=== PATIENT | male | born 1975 | race Caucasian/White ===

== ENCOUNTER → 2016-10-24 | Outpatient (CLI) | payer BC ==
[~2016-10-24] MED LIST: ASCA500 PO; CARI350T PO; DULO60CA44 PO; GABA300C19 PO; MORP60TA6 PO; MRLP17 PO; PANT40TA PO; RXC30 PO; TAPE50TA PO; VITAMIN C PO
== END | disposition home or self-care (01) ==
LOC: C.LABBC 09:48
PROVIDERS: ATTEND Anesthesiology
DX: R53.83 Other fatigue (principal); F11.90 Opioid use, unspecified, uncomplicated

== ENCOUNTER → 2016-10-31 | Outpatient (CLI) | payer BC, OTHER ==
[~2016-10-31] MED LIST changes: -CARI350T PO; -MORP60TA6 PO; -MRLP17 PO; -RXC30 PO
== END | disposition home or self-care (01) ==
LOC: C.CPL 12:05
PROVIDERS: ATTEND Student in an Organized Health Care Education/Training Program
DX: R94.31 Abnormal electrocardiogram [ECG] [EKG] (principal)

== ENCOUNTER → 2016-11-09 | Outpatient (CLI) | payer OTHER | LOC: C.LAB 00:51 | DX: Z02.83 Encounter for blood-alcohol and blood-drug test (principal) ==

== ENCOUNTER 2016-12-01 17:12 | Emergency (ER) | payer BC, OTHER ==
[~2016-12-01] VITALS: Ht 180.3 cm; Wt 113.0 kg
[~2016-12-01 17:12] MED LIST changes: -ASCA500 PO; -TAPE50TA PO
[2016-12-01 17:38] VITALS: Ht 180.3 cm; Wt 113.0 kg
[2016-12-01] MEDS ORDERED: MoRPHine SULFATE 4 MG/ML 1 ML CARP\\VIAL IV STA (19:25)
[2016-12-01] MEDS ORDERED: TRAMADOL HCL 50 MG TAB PO STA (19:25)
[2016-12-01] MEDS ORDERED: ACETAMINOPHEN 325 MG TAB PO STA (19:25)
[2016-12-01] MEDS ORDERED: SODIUM CHLORIDE 0.9% 1000ML 1,000 ML IV STA ×2 (19:25→20:39)
--- NOTE | 2016-12-01 19:27 | EMERGENCY ROOM VISIT NOTE ---
History Report prepared by Mernaibanneliese: Noreen Ramirez Under the Supervision of: Dr. Hussain Garrido M.D. First contact with patient: 19:10 Chief Complaint: CARDIAC ASSESSMENT Stated Complaint: CHEST PAIN, LEFT ARM PAIN, WEAKNESS SEVERE PAINS Nursing Triage Summary: Patient reports left sided chest pain and left arm pain that started all weekend. Reports the pain goes up the side of his neck and behind his left eye. Denies any cardiac history. 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 He reports the pain radiates into his left arm and up his neck. Yesterday, he experienced the pain but it eventually resolved. Today, the pain started and has not resolved yet. Positive headache, shortness of breath. Negative fevers, sore throat, congestion. The patient denies any personal cardiac history. He also denies any recent travel, surgeries or history of PE's or DVT's. The patient's father has a history of heart disease and underwent quadruple bypass surgery at the age of 46. 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 A total of ten systems were reviewed and were otherwise negative. Past Medical & Surgical Medical Problems: (1) Appendectomy (2) CHRONIC PAIN SYNDROME (3) COLOSTOMY STATUS (4) Diverticulitis of colon (5) DIVERTICULOSIS COLON (W/O MENT OF HEMORRHAGE) (6) ESOPHAGEAL REFLUX (7) History of lumbar laminectomy for decompression of spinal cord (8) LUMB/LUMBOSAC DISC DEGEN (9) perforated diverticulitis Family History Heart disease Kidney stones Social History Smoking Status: Current Some Day Smoker Alcohol Use: none Drug Use: none Marital Status: Housing Status: lives with family Occupation Status: employed Current/Historical Medications Scheduled Ascorbic Acid (Vitamin C), 100 MG PO DAILY Duloxetine Hcl (Cymbalta), 1 CAP PO DAILY Gabapentin (Neurontin), 600 MG PO TID Pantoprazole (Protonix), MG PO DAILY Allergies Coded Allergies: Methadone (Verified Adverse Reaction, Severe, SWEATS, SHAKES, NAUSEA, TREMMORS, 03/12/14) Physical Exam Vital Signs Date Time Temp Pulse Resp B/P (MAP) Pulse Ox O2 Delivery O2 Flow Rate FiO2 12/01/16 22:47 37.0 83 20 149/86 96 12/01/16 22:24 83 20 149/86 96 12/01/16 19:04 121 22 169/107 93 12/01/16 17:41 97 Room Air 12/01/16 17:38 37.0 122 20 219/194 97 Room Air Physical Exam GENERAL: Awake, alert, uncomfortable-appearing, appears to be in pain. HENT: Normocephalic, atraumatic. EYES: Normal conjunctiva. Sclera non-icteric. NECK: Supple. No nuchal rigidity. FROM. RESPIRATORY: CTAB, no rhonchi, wheezing, crackles CARDIAC: Tachycardic heart rate, RR, no MRG ABDOMEN: Soft, NTND, BS+ MSK: No chest wall TTP, no LE edema, no calf pain. NEURO: GCS 15, CN 2-12 intact, moves all 4s on command SKIN: No rash or jaundice noted. Medical Decision & Procedures ER Provider Diagnostic Interpretation: Radiology results as stated below per my review and radiologist interpretation: CHEST ONE VIEW PORTABLE HISTORY: Atypical chest pain. Short of breath. COMPARISON: Chest 08/27/2014. FINDINGS: Low lung volumes. The lungs are clear. The heart is normal in size. No pleural effusions. No pneumothorax. IMPRESSION: No acute process. Electronically signed by: Tra Christie M.D. 12/01/2016 8:11 PM Laboratory Results 12/01/16 20:15 Red Blood Count 5.35, Mean Corpuscular Volume 89.7, Mean Corpuscular Hemoglobin 32.3, Mean Corpuscular Hemoglobin Concent 36.0, Mean Platelet Volume 10.6, Neutrophils (%) (Auto) 58.2, Lymphocytes (%) (Auto) 30.2, Monocytes (%) (Auto) 6.1, Eosinophils (%) (Auto) 4.6, Basophils (%) (Auto) 0.7, Neutrophils # (Auto) 7.00, Lymphocytes # (Auto) 3.64, Monocytes # (Auto) 0.73, Eosinophils # (Auto) 0.55, Basophils # (Auto) 0.09 12/01/16 20:15 Test 12/01/16 20:15 12/01/16 20:21 12/01/16 20:52 White Blood Count 12.04 K/uL (4.8-10.8) Red Blood Count 5.35 M/uL (4.7-6.1) Hemoglobin 17.3 g/dL (14.0-18.0) Hematocrit 48.0 % (42-52) Mean Corpuscular Volume 89.7 fL (80-100) Mean Corpuscular Hemoglobin 32.3 pg (25-34) Mean Corpuscular Hemoglobin Concent 36.0 g/dl (32-36) Platelet Count 238 K/uL (130-400) Mean Platelet Volume 10.6 fL (7.4-10.4) Neutrophils (%) (Auto) 58.2 % Lymphocytes (%) (Auto) 30.2 % Monocytes (%) (Auto) 6.1 % Eosinophils (%) (Auto) 4.6 % Basophils (%) (Auto) 0.7 % Neutrophils # (Auto) 7.00 K/uL (1.4-6.5) Lymphocytes # (Auto) 3.64 K/uL (1.2-3.4) Monocytes # (Auto) 0.73 K/uL (0.11-0.59) Eosinophils # (Auto) 0.55 K/uL (0-0.5) Basophils # (Auto) 0.09 K/uL (0-0.2) RDW Standard Deviation 44.4 fL (36.4-46.3) RDW Coefficient of Variation 13.5 % (11.5-14.5) Immature Granulocyte % (Auto) 0.2 % Immature Granulocyte # (Auto) 0.03 K/uL (0.00-0.02) D-Dimer 450 ug/L FEU (0-500) Anion Gap 4.0 mmol/L (3-11) Est Creatinine Clear Calc Drug Dose 147.4 ml/min Estimated GFR () 126.6 Estimated GFR (Non- 109.2 BUN/Creatinine Ratio 10.3 (10-20) Calcium Level 8.9 mg/dl (8.5-10.1) Phosphorus Level 3.9 mg/dl (2.5-4.9) Magnesium Level 2.2 mg/dl (1.8-2.4) Bedside Troponin I < 0.030 ng/ml (0-0.045) Venous Blood pH 7.40 (7.36-7.41) Venous Blood Partial Pressure CO2 46 mmHg (38.0-50.0) Venous Blood Partial Pressure O2 56 mmHg Venous Blood HCO3 28 mmol/L Venous Blood Oxygen Saturation 88.5 % Venous Blood Base Excess 2.3 mEq/L Laboratory results reviewed by me Medications Administered Medications (Trade) Dose Ordered Sig/Jaxon Route Start Time Stop Time Status Last Admin Dose Admin Morphine Sulfate (MoRPHine SULFATE INJ) 4 mg NOW STAT IV 12/01/16 19:25 12/01/16 19:28 DC 12/01/16 20:30 4 MG Tramadol HCl (Ultram Tab) 50 mg NOW STAT PO 12/01/16 19:25 12/01/16 19:28 DC 12/01/16 20:31 50 MG Acetaminophen (Tylenol Tab) 650 mg NOW STAT PO 12/01/16 19:25 12/01/16 19:28 DC 12/01/16 20:31 650 MG Sodium Chloride 1,000 ml @ 999 mls/hr Q1H1M STAT IV 12/01/16 19:25 12/01/16 20:25 DC 12/01/16 20:30 999 MLS/HR Metoclopramide HCl (Reglan Inj) 10 mg NOW STAT IV 12/01/16 19:28 12/01/16 19:29 DC 12/01/16 20:32 10 MG Dexamethasone Sodium Phosphate (Decadron Inj) 10 mg NOW ONCE IV 12/01/16 20:45 12/01/16 20:46 DC 12/01/16 21:07 10 MG Sodium Chloride 1,000 ml @ 999 mls/hr Q1H1M STAT IV 12/01/16 20:39 12/01/16 21:39 DC 12/01/16 21:07 999 MLS/HR ECG Indication: chest pain Rate (beats per minute): 115 Rhythm: sinus tachycardia Findings: left axis deviation, other (Normal intervals. No other STS changes or T-wave inversions) ED Course 1912: The patient was evaluated in room C7. A complete history and physical exam was performed. 2229: I reevaluated the patient. He is feeling well. I discussed his results and discharge instructions and he verbalized complete understanding and agreement. 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 Triage Nursing notes reviewed. The patient's presentation and history were concerning for chronic pain syndrome , ACS, atypical chest pain and PE Patient was evaluated at the bedside and further workup with imaging and blood work and EKG. Patient EKG was fairly unremarkable. Patient had a negative troponin. Patient d-dimer was not elevated. Patient's pain improved as well as his tachycardia with fluids. I spoke with the patient and counseled him on smoking cessation. Patient was wanting to go home. Patient did have a slightly suspicious story and does have multiple risk factors which gives him a heart score of 3 and he was deemed safe for outpatient management. Patient's dimer was negative and in the setting of the tachycardia this may have just been pain related. Patient was given strict follow-up, discharge, return precautions. Patient agreed with plan of care and was discharged home. Medication Reconcilliation Current Medication List: was personally reviewed by me Blood Pressure Screening Patient's blood pressure: Elevated blood pressure Blood pressure disposition: Referred to PCP Impression Primary Impression: Chest pain Additional Impression: Encounter for smoking cessation counseling Scribe Attestation The scribe's documentation has been prepared under my direction and personally reviewed by me in its entirety. I confirm that the note above accurately reflects all work, treatment, procedures, and medical decision making performed by me. Departure Information Dispostion Home / Self-Care Patient Instructions Chest Pain - [facility], My [facility] Additional Instructions Please return to the emergency department if you have worsening or recurrent symptoms not amenable to at-home treatment. Please call for a follow-up appointment with her primary care physician. Please take your medications as prescribed. If you have other concerns and/or complaints please feel free to also call your primary care physician's office or return the ED for further evaluation, management, and treatment. Please consider smoking cessation. Please follow-up with the PCP for further testing as an outpatient. Problem Qualifiers Primary Impression: Chest pain Chest pain type: pleurodynia Qualified Codes: R07.81 - Pleurodynia
[2016-12-01] MEDS ORDERED: METOCLOPRAMIDE HCL INJ 5 MG/ML 2 ML VIAL IV STA (19:28)
--- NOTE | 2016-12-01 20:12 | DIAGNOSTIC IMAGING REPORT ---
CHEST ONE VIEW PORTABLE HISTORY: Atypical chest pain. Short of breath. COMPARISON: Chest 08/27/2014. FINDINGS: Low lung volumes. The lungs are clear. The heart is normal in size. No pleural effusions. No pneumothorax. IMPRESSION: No acute process. Electronically signed by: Tra Christie M.D. 12/01/2016 8:11 PM Dictated Date/Time: 12/01/2016 8:09 PM
[2016-12-01 20:27] LABS: BASO % 0.7 %; BASO ABS # 0.09 K/uL (0-0.2); COMPLETE YES; EOS % 4.6 %; IG% 0.2 %; LYMPH % 30.2 %; LYMPH ABS # 3.64 K/uL (1.2-3.4); MEAN CELL VOLUME 89.7 fL (80-100); MEAN CORPUSCULAR HEMOGLOBIN 32.3 pg (25-34); MEAN PLATELET VOLUME 10.6 fL (7.4-10.4); MONO % 6.1 %; NEUT % 58.2 %; PLATELET COUNT 238 K/uL (130-400); RED BLOOD COUNT 5.35 M/uL (4.7-6.1); WHITE BLOOD COUNT 12.04 K/uL (4.8-10.8)
[2016-12-01 20:44] LABS: BUN/CREATININE RATIO 10.3 (10-20); CALCIUM 8.9 mg/dl (8.5-10.1); CREATININE 0.86 mg/dl (0.60-1.40); MAGNESIUM 2.2 mg/dl (1.8-2.4); PHOSPHORUS 3.9 mg/dl (2.5-4.9)
[2016-12-01] MEDS ORDERED: DEXAMETHASONE SOD INJ 10 MG/ML VIAL IV ONE (20:45)
[2016-12-01 21:04] LABS: VEN BLD GAS O2 SATURATION 88.5 %; VEN BLOOD GAS BASE EXCESS 2.3 mEq/L
[2016-12-01 22:47] VITALS: BP 149/86; PULSE 83; TEMP 37; O2SAT 96
[2016-12-01] MEDS ORDERED: ASCA500 PO (22:48)
[2017-01-02] MEDS ORDERED: TAPE50TA PO (09:09)
== END 2016-12-01 22:48 | disposition home or self-care (01) ==
LOC: C.EDB 17:14 → C.EDC 22:48
DX: R07.9 Chest pain, unspecified (principal); K21.9 Gastro-esophageal reflux disease without esophagitis; K57.30 Diverticulosis of large intestine without perforation or abscess without bleeding; K57.32 Diverticulitis of large intestine without perforation or abscess without bleeding; G89.29 Other chronic pain; F17.200 Nicotine dependence, unspecified, uncomplicated; Z93.3 Colostomy status; Z79.899 Other long term (current) drug therapy; Z88.8 Allergy status to other drugs, medicaments and biological substances; Z82.49 Family history of ischemic heart disease and other diseases of the circulatory system; Z84.1 Family history of disorders of kidney and ureter

== ENCOUNTER → 2016-12-26 | Outpatient (CLI) | payer BC, OTHER ==
[~2016-12-26] MED LIST changes: +ASCA500 PO; +CLON0.5T3 PO; +TAPE100T2 PO; +TAPE50TA PO; -VITAMIN C PO
[2016-12-26 18:31] LABS: BASO % 0.5 %; BASO ABS # 0.06 K/uL (0-0.2); COMPLETE YES; EOS % 4.7 %; HEMATOCRIT 43.4 % (42-52); IG% 0.2 %; LYMPH % 28.2 %; LYMPH ABS # 3.57 K/uL (1.2-3.4); MEAN CELL VOLUME 90.8 fL (80-100); MEAN CORPUSCULAR HEMOGLOBIN 32.2 pg (25-34); MEAN CORPUSCULAR HGB CONC 35.5 g/dl (32-36); MONO % 6.8 %; NEUT % 59.6 %; PLATELET COUNT 301 K/uL (130-400); RED BLOOD COUNT 4.78 M/uL (4.7-6.1); WHITE BLOOD COUNT 12.65 K/uL (4.8-10.8)
[2016-12-26 18:42] LABS: URINE APPEARANCE CLEAR (CLEAR); URINE COLOR DK YELLOW; URINE EPITHELIAL CELL AUTO 20-30 /lpf (0-5); URINE NITRITE NEG (NEG); URINE PH 5.5 (4.5-7.5); URINE SPECIFIC GRAVITY 1.028 (1.000-1.030); UROBILINOGEN NEG (NEG)
[2016-12-26 18:52] LABS: MANUAL MICROSCOPIC REQUIRED? NO; REVIEW REQ? YES; URINE BILIRUBIN NEG (NEG)
[2016-12-26 18:55] LABS: URINE PATH CASTS 5-10 WBC CASTS /lpf (0)
== END | disposition home or self-care (01) ==
LOC: C.LAB 17:43
PROVIDERS: ATTEND Anesthesiology
DX: Z01.812 Encounter for preprocedural laboratory examination (principal); R53.83 Other fatigue; E11.9 Type 2 diabetes mellitus without complications; I10 Essential (primary) hypertension

== ENCOUNTER → 2016-12-29 | Outpatient (CLI) | payer BC, OTHER ==
[~2016-12-29] MED LIST changes: -CLON0.5T3 PO; -TAPE100T2 PO
--- NOTE | 2016-12-29 10:07 | DIAGNOSTIC IMAGING REPORT ---
THORACOLUMBAR SPINE 2 VIEWS CLINICAL HISTORY: SPINAL CORD STIMULATOR PLACEMENT COMPARISON STUDY: No previous studies for comparison. FINDINGS: Pedicle screws are visualized at the L4 level bilaterally, and unilaterally on the right at the L5 and S1 levels. There are postsurgical changes of discectomies and interbody fusions at the L4-5 and L5-S1 levels. There is a spinal cord stimulator which enters the spine at the T12-L1 level. The tip extends cephalad to the T9-10 level. No acute fractures are visualized. IMPRESSION: Spinal cord stimulator with its tip at the T9-T10 level. Postsurgical changes within the lumbar spine. Electronically signed by: Lisandro Moise M.D. 12/29/2016 10:05 AM Dictated Date/Time: 12/29/2016 10:04 AM
== END | disposition home or self-care (01) ==
LOC: C.RADBC 09:46
PROVIDERS: ATTEND Anesthesiology
DX: T85.192A Other mechanical complication of implanted electronic neurostimulator of spinal cord electrode (lead), initial encounter (principal); X58.XXXA Exposure to other specified factors, initial encounter

== ENCOUNTER 2017-02-25 11:18 | Observation (INO) | payer BC, OTHER ==
[2017-02-04 09:01] VITALS: BMI 35.0
--- NOTE | 2017-02-04 09:25 | PAT Medication Instructions ---
Service Date Feb 04, 2017. Current Home Medication List Ascorbic Acid (Vitamin C), 100 MG PO QAM Clonazepam (Klonopin), 0.5 MG PO BID Duloxetine Hcl (Cymbalta), 1 CAP PO QAM Gabapentin (Neurontin), 900 MG PO TID Losartan Potassium (Cozaar), 50 MG PO QAM Pantoprazole (Protonix), 40 MG PO BID Tapentadol Hcl (Nucynta), 1 TAB PO QID Medication Instructions For Your Scheduled Surgery - Hold the following medications the morning of surgery: Losartan Potassium (Cozaar), 50 MG PO QAM Ascorbic Acid (Vitamin C), 100 MG PO QAM - Take the following medications the morning of surgery with a sip of water: Tapentadol Hcl (Nucynta), 1 TAB PO QID (can be taken up to four hours before surgery) Pantoprazole (Protonix), 40 MG PO BID Gabapentin (Neurontin), 900 MG PO TID Duloxetine Hcl (Cymbalta), 1 CAP PO QAM Clonazepam (Klonopin), 0.5 MG PO BID - Take the following medications as scheduled the night before surgery: Tapentadol Hcl (Nucynta), 1 TAB PO QID Pantoprazole (Protonix), 40 MG PO BID Gabapentin (Neurontin), 900 MG PO TID Clonazepam (Klonopin), 0.5 MG PO BID If you have any questions please call us at [phone] or [phone] or [phone]
[2017-02-04 10:16] LABS: BASO % 0.8 %; BASO ABS # 0.08 K/uL (0-0.2); COMPLETE YES; EOS % 4.3 %; HEMATOCRIT 45.4 % (42-52); IG% 0.2 %; LYMPH % 23.8 %; LYMPH ABS # 2.35 K/uL (1.2-3.4); MEAN CELL VOLUME 90.6 fL (80-100); MEAN CORPUSCULAR HEMOGLOBIN 30.9 pg (25-34); MEAN CORPUSCULAR HGB CONC 34.1 g/dl (32-36); MEAN PLATELET VOLUME 11.1 fL (7.4-10.4); MONO % 6.1 %; NEUT % 64.8 %; PLATELET COUNT 249 K/uL (130-400); RED BLOOD COUNT 5.01 M/uL (4.7-6.1); WHITE BLOOD COUNT 9.86 K/uL (4.8-10.8)
[2017-02-04 10:17] LABS: URINE APPEARANCE CLEAR (CLEAR); URINE BILIRUBIN NEG (NEG); URINE COLOR YELLOW; URINE NITRITE NEG (NEG); URINE PH 6.5 (4.5-7.5); URINE SPECIFIC GRAVITY 1.013 (1.000-1.030); UROBILINOGEN NEG (NEG)
[2017-02-04 10:19] LABS: MANUAL MICROSCOPIC REQUIRED? NO; REVIEW REQ? NO
[2017-02-04 10:27] LABS: BUN/CREATININE RATIO 10.5 (10-20); CALCIUM 8.7 mg/dl (8.5-10.1); CREATININE 0.82 mg/dl (0.60-1.40); POTASSIUM 3.9 mmol/L (3.5-5.1)
--- NOTE | 2017-02-20 08:41 | History and Physical ---
History & Physical Date of Service Feb 20, 2017. History & Physical Plan of care discussed with Dr. Salazar CHIEF COMPLAINT: Chronic Intractable Lumbago HISTORY OF PRESENT ILLNESS: Mr. 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 Patient has received #7 lumbar surgeries which resulted in approximately 90% axial low back pain and 10% radicular pain. The pain is described as a sharp, shooting, throbbing, and burning pain. Radicular pain is located along the left lower leg in a non- dermatomal pattern. He is currently utilizing Nucynta 100mg 4 times daily with mild pain relief. He does continue to experience significant limitation into his ambulatory and ADL activities. No leg weakness, bowel/bladder incontinence , saddle anesthesia, foot drop, or falls. PAST MEDICAL HISTORY: 1. Gastresophageal reflux disease 2. Diveritculosis 3. Hypertension PAST SURGICAL HISTORY: 1. Colostomy placement 2. Appendectomy 3. #7 Lumbar spine surgeries 4. Herniorrhaphy 2 5. Right hand surgery WORK HISTORY: Disabled SOCIAL HISTORY: Patient is . He does smoke one pack of cigarettes per day 20 years. Occasionally drinks 1-2 beers a month. He does have history of amphetamine and THC use. Most recent drug screens have been negative. ALLERGIES: Methadone MEDICATIONS: 1. Vitamin C 100 mg daily 2. Clonazepam 0.5 mg twice daily 3. Duloxetine 60 mg daily 4. Gabapentin 900 mg 3 times daily 5. Ibuprofen 400 mg 3 times daily 6. Losartan 50 mg daily 7. Pantoprazole 40 mg daily 8. Nucynta 100 mg 4 times daily REVIEW OF SYSTEMS: Denies any constitutional, cardiac, pulmonary, neurological, GI, , extremity, endocrine, neuro, ENT, dermatological, or musculoskeletal complaints other than stated in HPI PHYSICAL EXAMINATION: VITAL SIGNS: Per admission GENERAL: Mr. Velasquez is a 41 year old white male that is overweight and physically deconditioned. Speech and cognition is intact. Mood and affect is appropriate. Appears moderately uncomfortable. HEAD: Normocephalic; atraumatic. EYES: Pupils are round, equal, and reactive to light; EOM intact. ENT: No external ear discharge or lesions. No rhinorrhea or epistaxis. No mucosal lesions. NECK: Full ROM; trachea is midline. CARDIO: Regular rate and rhythm. No murmurs, rubs, or gallops. PULM: Clear to auscultation. No wheezes, rales, or rhonchi. CHEST: Regular chest respiration and excursion. EXTREMTIES: Positive SLR on the left. There is 4/5 strength with left foot dorsiflexion, otherwise 5/5 strength of the legs. BACK: Complete loss of lumbar lordosis. There is a well healed surgical incision of the lumbar spine. There is NEURO: CN II-XII grossly intact with no focal deficits noted. SKIN: No rashes, erythema, or lesions noted. ASSESSMENT: Chronic Intractable Lumbago Secondary to Lumbar Post-Laminectomy Syndrome TREATMENT: Mr. Velasquez is a 41 year old white male that does have a significant history of #7 lumbar spine surgeries which has resulted in low back pain and radicular pain along the left lower leg. Patient reports significant limitation into performing his daily activities due to pain. He has been on chronic opioid therapy for 15+ years without any substantial relief. It is recommended that the patient undergo an intrathecal morphine trial for possible increased pain relief. Risks and benefits have been reviewed. The procedure was explained and he would like to proceed with the intrathecal morphine trial as scheduled for February 25, 2017.
[~2017-02-25] VITALS: Ht 180.3 cm; Wt 110.7 kg
[~2017-02-25 11:18] MED LIST changes: +ATROPINE SULFATE 0.1 MG/ML 5ML SYR IV PRN; +CEFAZOLIN 2000 MG/60 ML D5W 50 ML IV SCH; +CEFAZOLIN 2000MG IV PUSH 10 ML IV SCH; +CLON0.5T3 PO; +EpHEDrine SULFATE INJ 50 MG/ML AMP IV PRN; +FENTANYL CITRATE INJ 50 MCG/1 ML 2 ML VIAL IV PRN; +GABA-1218 PO; -GABA300C19 PO; +HYDROmorphone INJ 2 MG/ML SYR/VIAL IV PRN; +IBUP-1459 PO; +LACTATED RINGER'S 1000ML 1,000 ML IV SCH; +LOSA50TA6 PO; +MORPHINE SULFATE EPI PRN; +MORPHINE SULFATE PF 2MG/2ML SYR EPI PRN; +ONDANSETRON INJ 2 MG/ML 2 ML VIAL IV PRN; +PHENYLEPHRINE 100MCG/ML 5ML SYR IV PRN; +TAPE100T2 PO; -TAPE50TA PO
[2017-02-25 11:41] VITALS: BP 172/97; PULSE 94; TEMP 36.8; O2SAT 97; BMI 35.0
[2017-02-25] MEDS ORDERED: FENTANYL CITRATE INJ 50 MCG/1 ML 2 ML VIAL ONE ×3 (12:43→13:31)
[2017-02-25] MEDS ORDERED: MIDAZOLAM HCL 1 MG/ML 2ML VIAL ONE ×4 (12:43→13:51)
[2017-02-25] MEDS ORDERED: MoRPHine SULFATE PF 1 MG/ML 10 ML AMP/VIAL INJ SCH ×2 (13:00)
[2017-02-25] MEDS ORDERED: FENTANYL CITRATE INJ 50 MCG/1 ML 2 ML VIAL INJ SCH (13:00)
--- NOTE | 2017-02-25 13:19 | History & Physical Bridge Note ---
H&P Re-Evaluation Bridge Note: I have examined the patient, reviewed the History & Physical and in the interval since the performance of the History & Physical I have noted the following changes of clinical significance: No changes noted No change in Manuel medical history or physical examination are noted today. He continues his typical symptoms. He is nothing by mouth and has not taken antiplatelet or anticoagulant medications. This morning, the possible risks, potential complications, the benefits of undergoing intrathecal trial, diagnostic nature of the procedure, as well as alternatives were discussed with him in detail. His questions were answered and he elects to proceed. Informed consent was obtained. Laboratory studies are unremarkable and there is no complications proceeding.
[2017-02-25] MEDS ORDERED: MORPHINE SULFATE PF 2MG/2ML SYR ONE (13:32)
[2017-02-25] MEDS ORDERED: LIDOCAINE HCL 1% 20 ML VIAL ONE (13:51)
[2017-02-25] MEDS ORDERED: IV FLUIDS COMPLETED PRN ×3 (14:00→15:15)
[2017-02-25] MEDS ORDERED: MORPHINE SULFATE EPI SCH (14:00)
[2017-02-25] MEDS ORDERED: SODIUM CHLORIDE 0.9% EPI SCH (14:00)
[2017-02-25] MEDS ORDERED: IOPAMIDOL IV ONE (14:06)
[2017-02-25] MEDS ORDERED: MoRPHine SULFATE 1 MG/ML 50 ML PCA CASS IV ONE (14:10)
--- NOTE | 2017-02-25 14:43 | [facility] Operative Report ---
Operative Report Operative Date Feb 25, 2017. Pre-Operative Diagnosis Lumbar Post Laminectomy Syndrome Post-Operative Diagnosis Same as preoperative Procedure(s) Performed Insertion of epidural catheter under fluoroscopic guidance for epidural morphine trial. Surgeon Dr. Tao Salazar Press Puller Surgeon(s) None per surgeon Estimated Blood Loss 0ml Findings See below Specimens None per surgeon Anesthesia monitoring seizure care Disposition Recovery Room / PACU Description of Procedure INSERTION OF EPIDURAL CATHETER Preprocedure diagnosis: Chronic lumbar post laminectomy syndrome.. Postprocedure diagnosis: Same. Anesthesia: Monitored anesthesia care. Side/Level injected: L2-3. Surgeon: Dr. Salazar. Complications: None. Disposition: To PACU Prior to starting, the Patients diagnosis and the procedure were reviewed with the patient in detail. Possible risks and complications including infection, bleeding, damage to surrounding structures and increased pain were discussed. Alternative therapies were also reviewed. Patients questions were answered and they agreed to proceed. Informed consent was obtained. Allergies and medication list was reviewed. The patient was brought to the procedure room and placed in prone position. Immediately prior to starting the procedure, a ``time out was conducted with the staff and the patient where the patient was identified, proposed procedure was verified, consent was reviewed and the proper site for the planned procedure was identified. Monitors used included intermittent blood pressure with automated device, continuous pulse oximetry and level of consciousness. Patient was not given any intravenous sedation and constant verbal contact was maintained throughout the procedure. Biplanar fluoroscopy was used to assist in placement of the needle as well as to evaluate final needle position prior to the injection. On examination, no signs of skin breakdown or infection were noted at the injection site. The site was cleansed with DuraPrep followed by Betadine. Sterile drapes were applied. A true AP view of the superior endplate of the L3 vertebra was obtained. Skin and soft tissue over the inferior aspect of the interlaminar laminar notch was infiltrated with 3 mL of 1% Xylocaine using a 25 gauge needle. Midline approach was utilized. A 19 gauge, 3.5 inch Tuohy needle was then inserted through the anesthetized area and advanced under fluoroscopic guidance through the intraspinous ligaments. C-arm was then turned to a true lateral view and the needle was advanced through the ligamentum flavum into the epidural space with [id number] technique with air. Upon entering the epidural space the patient did not experience pain or paresthesia. No CSF was noted. Bevel of the needle was directed in the cephalad direction. A 20-gauge Arrow catheter was inserted approximately 3 cm into the epidural space. Aspiration via the catheter demonstrated no CSF or blood. In a lateral view, 1cc Isovue 300 contrast was injected via the needle under live fluoroscopy. The contrast was noted to be in the dorsal epidural space. No subarachnoid spread of contrast was noted. Presence of contrast was verified and contralateral oblique view. Finally, an AP view was then checked and additional 1cc of the contrast was injected under live fluoroscopy. Neither subdural or subarachnoid spread nor intravascular uptake was noted on plain fluoroscopy. No vascular uptake was noted. Next, 100 mcg fentanyl and 2 mg preservative morphine was injected via the catheter gradually. Patient did not experience any pain, paresthesia or discomfort throughout the injection period. Catheter was secured using 2 0-0 monofilament purse string suture around the entry site. Additional Steri- Strips were applied and Tegaderm dressing was applied. Abdominal binder was placed. Patient tolerated the procedure uneventfully without complications. Patient was transferred to recovery room. In the recovery room, infusion of preservative free morphine at the rate of 0.2 mg per hour was started via the epidural catheter. I attest to the content of the Intraoperative Record and any orders documented therein. Any exceptions are noted below.
[2017-02-25] MEDS ORDERED: NSS EPI SCH (14:45)
[2017-02-25] MEDS ORDERED: MORPHINE SUL EPI SCH (14:45)
--- NOTE | 2017-02-25 14:53 | Anesthesiology Progress Note ---
Anesthesia Post Op Note Date & Time Feb 25, 2017 at 14:52 Vital Signs Pain Intensity: 4 Vital Signs Past 12 Hours Date Time Temp Pulse Resp B/P (MAP) Pulse Ox O2 Delivery O2 Flow Rate FiO2 02/25/17 14:50 143/97 02/25/17 14:47 79 20 02/25/17 14:47 77 20 95 02/25/17 14:46 131/76 02/25/17 14:42 81 15 95 02/25/17 14:42 82 15 02/25/17 14:40 136/76 02/25/17 14:37 79 20 02/25/17 14:37 80 20 94 02/25/17 14:35 135/88 02/25/17 14:32 82 16 131/83 95 02/25/17 14:32 36.4 79 18 131/83 (96) 94 Room Air 02/25/17 14:32 83 16 02/25/17 11:41 36.8 94 18 172/97 (122) 97 Room Air Notes Mental Status: alert / awake / arousable, participated in evaluation Pt Amnestic to Procedure: Yes Nausea / Vomiting: adequately controlled Pain: adequately controlled Airway Patency, RR, SpO2: stable & adequate BP & HR: stable & adequate Hydration State: stable & adequate Anesthetic Complications: no major complications apparent
[2017-02-25 16:22] VITALS: BP 143/89; PULSE 79; TEMP 36.7; O2SAT 94
[2017-02-25] MEDS: GABAPENTIN 800 MG TAB PO SCH ×2 (17:37→21:15)
[2017-02-25 17:39] VITALS: BP 143/89; PULSE 79; TEMP 36.7; Ht 180.3 cm; Wt 110.7 kg
[2017-02-25 19:46] VITALS: BP 151/104; PULSE 88; TEMP 36.8; O2SAT 97
[2017-02-25] MEDS: PANTOprazole SOD 40 MG TAB PO SCH (21:15)
[2017-02-25] MEDS ORDERED: INFLUENZA VIRUS QUAD VACCINE 0.5 ML SYR IM. ONE (21:15)
[2017-02-25] MEDS ORDERED: INFLUENZA ADMINISTRATION CHARGE ONE (21:15)
[2017-02-25] MEDS: CLONAZEPAM 0.5 MG TAB PO PRN (21:17)
[2017-02-25 23:25] VITALS: BP 164/112; PULSE 84; TEMP 36.7; O2SAT 98
[2017-02-25 23:33] VITALS: BP 132/85; PULSE 76; TEMP 36.6; O2SAT 95
[2017-02-26] VITALS (7 sets, daily range): BP systolic 134–177; BP diastolic 83–132; PULSE 73–112; TEMP 36.6–36.9; O2SAT 93–98
[2017-02-26] MEDS ORDERED: NURSING VERBAL MED ORDER ONE (04:15)
[2017-02-26] MEDS: NICOTINE POLACRILEX 2 MG GUM MT PRN ×3 (04:25→14:42)
[2017-02-26] MEDS: CLONAZEPAM 0.5 MG TAB PO PRN ×2 (07:33→20:42)
[2017-02-26] MEDS: PANTOprazole SOD 40 MG TAB PO SCH ×2 (07:34→20:42)
[2017-02-26] MEDS: NICOTINE 21 MG/24 HR TDSY EXT SCH (07:34)
[2017-02-26] MEDS: LOSARTAN POTASSIUM 50 MG TAB PO SCH (07:35)
[2017-02-26] MEDS: GABAPENTIN 800 MG TAB PO SCH ×3 (07:35→20:43)
[2017-02-26] MEDS: DULOXETINE HCL 60 MG CAP PO SCH (07:35)
--- NOTE | 2017-02-26 09:31 | Pain Management Progress Note ---
Pain Management Progress Note Date of Service Feb 26, 2017. Subjective Mr. Velasquez is a 41-year-old white male known to the pain service for chronic intractable low back pain who underwent placement of epidural catheter 24 hours ago infusing morphine at 0.2 mg per hour. Patient is reporting moderate improvement in his axial low back pain over the past 12 hours estimating a 25-30 % reduction in the severity of his pain. Patient was ambulating in the hallways frequently to assess response with generalized improvement in his axial back pain complaint. He did attempt to ambulate off the floor last evening to smoke with an apparent incident with the nursing staff. The patient reported that he was not ignorant or abusive towards the nursing staff which was reported. Patient is experiencing some nicotine withdrawal due to his history of tobacco use at greater than 1 pack per day for 25 years. NicoDerm patch and gum was initiated last evening with moderate improvement. He is not experiencing side effects from the epidural catheter with morphine infusion, denying urinary incontinence, fatigue or cognitive side effects. He denies further and planes at this time. Plan of care discussed with Dr. Savannah Ortiz. Pain Location 1 - Objective Vital Signs: Last Vital Signs Documentation Date Time Temp Pulse Resp B/P (MAP) Pulse Ox O2 Delivery O2 Flow Rate FiO2 02/26/17 08:21 36.9 112 22 177/83 (114) 96 Room Air Physical Exam: Gen.: Patient was in relating in the hallway and was able to transfer from standing to sitting without obvious discomfort or limitations. Speech and thought process was appropriate. Cognition intact. Patient appears to be slightly older than his stated age of 41 and is moderately overweight. Back/spine: Abdominal binder was removed for visual inspection. Catheter insertion site appears to be appropriate without evidence of edema, erythema or skin breakdown. Generalized tenderness to palpation of the lumbar region which is nonfocal. Lower extremities: Full range of motion without limitation. Sensation intact without deficit. Strength 4/5 left dorsiflexion, all other strength 5/5 and equal. Neurologic: Cranial nerves grossly intact. Ambulatory function is normal. Laboratory Laboratory Findings 02/04/17 09:50 Red Blood Count 5.01, Mean Corpuscular Volume 90.6, Mean Corpuscular Hemoglobin 30.9, Mean Corpuscular Hemoglobin Concent 34.1, Mean Platelet Volume 11.1 H, Neutrophils (%) (Auto) 64.8, Lymphocytes (%) (Auto) 23.8, Monocytes (%) (Auto) 6.1, Eosinophils (%) (Auto) 4.3, Basophils (%) (Auto) 0.8, Neutrophils # (Auto) 6.39, Lymphocytes # (Auto) 2.35, Monocytes # (Auto) 0.60 H, Eosinophils # (Auto ) 0.42, Basophils # (Auto) 0.08 Assessment 1. Chronic intractable low back pain secondary to lumbar postlaminectomy syndrome 2. Tobacco abuse Recommendations 1. Will adjust epidural morphine from 0.2 mg per hour to 0.3 mg/h. Further adjustment pending response. 2. Discussion with patient regarding hospital policies regarding his ability to leave the floor to smoke. Due to cardiac monitoring the patient is not allowed off the floor which was verbalized the patient and reinforced and he verbalizes understanding. Patient to utilize the NicoDerm patch as well as gum.
[2017-02-26] MEDS ORDERED: MORPHINE SULFATE EPI SCH (14:45)
[2017-02-26] MEDS ORDERED: ONDANSETRON INJ 8 MG in DEXTROSE 5% 50ML 50 ML IV PRN (14:45)
[2017-02-26] MEDS ORDERED: NALOXONE HCL 0.4 MG/1 ML VIAL/CARP IV PRN (14:45)
[2017-02-26] MEDS ORDERED: NALOXONE HCL INJ 0.4 MG/1 ML VIAL/CARP IV PRN (14:45)
[2017-02-26] MEDS ORDERED: MAGNESIUM CITRATE 296 ML/BTL PO PRN (14:45)
--- NOTE | 2017-02-26 14:58 | Pain Clinic Return Visit ---
Pain Clinic Return Visit Date of Service Feb 26, 2017. Reason For Visit epidural ITP trial Subjective Pt reports doing well with epidural morphine. Pain consistently 5/10 while at home his level of activity that he participated in today would have resulted in 8-9/10. He did not utilize any breakthrough pain meds today. He is pleased with how the trial is progressing aside from lack of going outside to smoke Home Medications Scheduled Ascorbic Acid (Vitamin C), 100 MG PO QAM Clonazepam (Klonopin), 0.5 MG PO BID Duloxetine Hcl (Cymbalta), 1 CAP PO QAM Gabapentin (Neurontin), 900 MG PO TID Ibuprofen (Motrin), 400 MG PO TID Losartan Potassium (Cozaar), 50 MG PO QAM Pantoprazole (Protonix), 40 MG PO BID Tapentadol Hcl (Nucynta), 1 TAB PO QID Allergies Coded Allergies: Methadone (Verified Adverse Reaction, Severe, SWEATS, SHAKES, NAUSEA, TREMMORS, 02/25/17) Medications & Allergies Reconciled: Yes Review of Systems a 10 pt ROS is otherwise neg aside from HPI Objective Date Time Temp Pulse Resp B/P (MAP) Pulse Ox O2 Delivery O2 Flow Rate FiO2 02/26/17 12:00 Room Air 02/26/17 11:01 36.7 94 20 164/111 (128) 97 02/26/17 08:21 36.9 112 22 177/83 (114) 96 Room Air 02/26/17 08:00 Room Air 02/26/17 04:00 36.7 18 164/112 (129) 98 Room Air 02/26/17 04:00 Room Air 02/26/17 00:01 Room Air 02/25/17 23:33 36.6 76 16 132/85 (101) 95 Room Air 02/25/17 20:00 Room Air 02/25/17 19:46 36.8 88 20 151/104 (120) 97 Room Air 02/25/17 17:39 36.7 79 18 143/89 Room Air 02/25/17 16:22 36.7 79 18 143/89 (107) 94 02/25/17 15:46 150/86 02/25/17 15:41 139/97 02/25/17 15:38 83 19 94 02/25/17 15:38 81 19 02/25/17 15:36 155/89 11/15/17 15:33 73 17 02/25/17 15:33 70 17 94 02/25/17 15:32 72 19 93 02/25/17 15:32 75 19 02/25/17 15:30 163/87 02/25/17 15:27 78 25 02/25/17 15:27 79 25 93 02/25/17 15:25 137/88 02/25/17 15:24 141/86 02/25/17 15:21 135/104 02/25/17 15:17 76 14 92 02/25/17 15:17 75 14 02/25/17 15:15 138/85 02/25/17 15:12 78 16 96 02/25/17 15:12 77 16 02/25/17 15:11 155/97 02/25/17 15:10 36.7 78 17 138/85 (114) 94 Room Air 02/25/17 15:07 75 14 96 02/25/17 15:07 73 14 02/25/17 15:06 71 13 02/25/17 15:06 70 13 95 02/25/17 15:05 129/94 02/25/17 15:01 76 19 02/25/17 15:01 76 19 151/93 93 02/25/17 14:57 181/146 02/25/17 14:56 75 17 95 02/25/17 14:56 75 17 02/25/17 14:55 139/103 Height 5 feet, 11.00 inches. Weight 108.000 (Kilograms) 238 (Pounds) Physical Exam epidural catheter site is clean dry and intact. Laboratory Laboratory Findings Test 12/01/16 20:15 12/01/16 20:21 12/01/16 20:52 12/26/16 17:46 Range/Units D-Dimer 450 0-500 ug/L FEU Phosphorus Level 3.9 2.5-4.9 mg/dl Magnesium Level 2.2 1.8-2.4 mg/dl POC Troponin I < 0.030 0-0.045 ng/ml Venous Blood pH 7.40 7.36-7.41 Venous Blood Partial Pressure CO2 46 38.0-50.0 mmHg Venous Blood Partial Pressure O2 56 mmHg Venous Blood HCO3 28 mmol/L Venous Blood Oxygen Saturation 88.5 % Venous Blood Base Excess 2.3 mEq/L Urine WBC (Auto) 5-10 H 0-5 /hpf Urine RBC (Auto) 0-4 0-4 /hpf Urine Hyaline Casts (Auto) 10-30 H 0-5 /lpf Urine Epithelial Cells (Auto) 20-30 H 0-5 /lpf Urine Bacteria (Auto) NEG NEG Urine Pathogenic Casts 5-10 WBC CASTS H 0 /lpf Test 02/04/17 09:50 02/11/17 00:01 Range/Units White Blood Count 9.86 4.8-10.8 K/uL Red Blood Count 5.01 4.7-6.1 M/uL Hemoglobin 15.5 14.0-18.0 g/dL Hematocrit 45.4 42-52 % Mean Corpuscular Volume 90.6 80-100 fL Mean Corpuscular Hemoglobin 30.9 25-34 pg Mean Corpuscular Hemoglobin Concent 34.1 32-36 g/dl Platelet Count 249 130-400 K/uL Mean Platelet Volume 11.1 H 7.4-10.4 fL Neutrophils (%) (Auto) 64.8 % Lymphocytes (%) (Auto) 23.8 % Monocytes (%) (Auto) 6.1 % Eosinophils (%) (Auto) 4.3 % Basophils (%) (Auto) 0.8 % Neutrophils # (Auto) 6.39 1.4-6.5 K/uL Lymphocytes # (Auto) 2.35 1.2-3.4 K/uL Monocytes # (Auto) 0.60 H 0.11-0.59 K/uL Eosinophils # (Auto) 0.42 0-0.5 K/uL Basophils # (Auto) 0.08 0-0.2 K/uL RDW Standard Deviation 47.8 H 36.4-46.3 fL RDW Coefficient of Variation 14.4 11.5-14.5 % Immature Granulocyte % (Auto) 0.2 % Immature Granulocyte # (Auto) 0.02 0.00-0.02 K/uL Urine Color YELLOW Urine Appearance CLEAR CLEAR Urine pH 6.5 4.5-7.5 Urine Specific [place] 1.013 1.000-1.030 Urine Protein NEG NEG Urine Glucose (UA) 3+ NEG Urine Ketones NEG NEG Urine Occult Blood NEG NEG Urine Nitrite NEG NEG Urine Bilirubin NEG NEG Urine Urobilinogen NEG NEG Urine Leukocyte Esterase NEG NEG Sodium Level 138 136-145 mmol/L Potassium Level 3.9 3.5-5.1 mmol/L Chloride Level 104 98-107 mmol/L Carbon Dioxide Level 26 21-32 mmol/L Anion Gap 8.0 3-11 mmol/L Blood Urea Nitrogen 9 7-18 mg/dl Creatinine 0.82 0.60-1.40 mg/dl Est Creatinine Clear Calc Drug Dose 155.1 ml/min Estimated GFR () 129.1 Estimated GFR (Non- 111.4 BUN/Creatinine Ratio 10.5 10-20 Random Glucose 215 H 70-99 mg/dl Calcium Level 8.7 8.5-10.1 mg/dl Lab Scanned Report Pain Clinic Outside Drug [id number] Assessment 1. Chronic intractable low back pain secondary to lumbar postlaminectomy syndrome 2. Tobacco abuse Recommendations 1. Will increase morphine epidural to 0.4mg/hr. 2. Continue activity of walking around nursing station. I counselled the patient explicitly that he is not to leave the floor. He is not to ask to leave the floor. He expressed understanding. He may utilize the nicotine patch and gum that has been provided to him. 3. Will plan to d/c epidural tomorrow am and d/c in am tomorrow. 4. He will then f/u with our office within 7 days to discuss possible implantation of intrathecal pump. Pt expressed understanding.
[2017-02-26] MEDS: DOCUSATE SODIUM 100 MG CAP PO SCH ×2 (16:00→16:23)
[2017-02-27 00:20] VITALS: O2SAT 94
[2017-02-27 03:35] VITALS: BP 172/108; PULSE 85; TEMP 36.5; O2SAT 97
[2017-02-27] MEDS: CLONAZEPAM 0.5 MG TAB PO PRN (07:16)
[2017-02-27] MEDS: GABAPENTIN 800 MG TAB PO SCH (07:16)
[2017-02-27] MEDS: LOSARTAN POTASSIUM 50 MG TAB PO SCH (07:16)
[2017-02-27] MEDS: DULOXETINE HCL 60 MG CAP PO SCH (07:16)
[2017-02-27] MEDS: DOCUSATE SODIUM 100 MG CAP PO SCH (07:16)
[2017-02-27] MEDS: NICOTINE 21 MG/24 HR TDSY EXT SCH (07:17)
[2017-02-27 08:02] VITALS: BP 157/98; PULSE 77; TEMP 36.5; O2SAT 95
[2017-02-27] MEDS: PANTOprazole SOD 40 MG TAB PO SCH (08:50)
--- NOTE | 2017-02-27 09:48 | Discharge Instructions ---
Discharge Instructions Date of Service Feb 27, 2017. Visit Reason for Visit: Chronic Intractable Lumbago 2ND Post Laminectomy S Discharge Discharge Diagnosis / Problem: lumbar postlaminectomy syndrome. Discharge Goals Goal(s): Decrease discomfort Activity Recommendations Activity Recommendations: no repetitive bending, no repetitive twists Lifting Limitations: no more than 5 pounds Exercise/Sports Limitations: gradually increase as tolerated May Resume Sexual Activity: when tolerated Shower/Bathe: no limitations Anesthesia . Post Anesthesia Instructions: If you have had General Anesthesia or IV Sedation: * Do not drive today. * Resume driving when surgeon permits. * Do not make important decisions or sign legal documents today. * Call surgeon for: * Temperature elevations greater than 101 degrees F. * Uncontrollable pain. * Excessive bleeding. * Persistent nausea and vomiting. * Medication intolerance (nausea, vomiting or rash). * For nausea and vomiting use only clear liquids such as: tea, soda, bouillon until nausea subsides, then gradually increase diet as tolerated. * If you have any concerns or questions, call your surgeon's office. If physician is unavailable and it is an emergency, call 911 or go to the nearest emergency room. . Instructions Instructions / Follow-Up . * Change dressings daily. Apply sterile dry gauze. * Call [facility] [phone] or go to the nearest emergency room if he experience high fevers, new back pain, new neurological symptoms such as numbness or weakness in the lower extremity or new bowel bladder incontinence. Also of call if he experience a headache that is positional. * Wear abdominal binder. * No showers for 3 days. * Resume normal activity. No repetitive bending, twisting or reaching overhead for 2 weeks. Do not lift more than 5 pounds for 2 weeks. . Follow-Up Follow-Up: 1 week in office for wound check (must be okay by Dr. Cintron as patient left AMA) Diet Recommendations Home Diet: no limitations Procedures Procedures Performed: Insertion of epidural catheter under fluoroscopic guidance for epidural morphine trial. Removal of catheter prior to patient leaving AMA. Peripheral IV removed as well prior to patient leaving AMA Pending Studies Studies pending at discharge: no Medical Emergencies . Who to Call and When: Medical Emergencies: If at any time you feel your situation is an emergency, please call 911 immediately. . Non-Emergent Contact Non-Emergency issues call your: Primary Care Provider Call Non-Emergent contact if: temperature is above 101, your pain is unusual for you, wound has increased redness . . "Provider Documentation" section prepared by Tao Salazar. .
--- NOTE | 2017-02-27 10:50 | Pain Management Progress Note ---
Pain Management Progress Note Date of Service Feb 27, 2017. Subjective This morning, Mr. Velasquez reports improved analgesia with the epidural infusion. He was ambulating with pain that is rated as 2/10. He did not experience any other side effects including nausea, pruritus or urinary retention. Nursing staff reports that he left the monitored unit to go out to smoke despite being told multiple times not do so. It was reported that he disconnected his telemetry device and left floor to go out to smoke again few minutes ago. He has been noncompliant with the nurses and the hospital policies regarding leaving the floor to go out to smoke since being admitted to telemetry. It was further reported that his had said "not to deal with these people and get out" in regards with the hospital policies on smoking. He had initially refused nicotine patch and Nicorette gum but has been using intermittently until this morning when he reportedly declined the gum. When he was informed that once the intrathecal pump has been placed, his compliance with following safety precautions would be expected in order to not to have any complications. For example, compliance with refraining from use of a MACHINE ASSEMBLER depressant medications, using THC s he has in the past, etc... in order to minimize risks of MACHINE ASSEMBLER and respiratory depression. During the discussion Mr. Velasquez became angry, agitated and stated that he was going to leave A. He became verbally abusive. When he was informed that abusive behavior towards the staff would not be acceptable, he stated: "I am done" "You will be hearing from my professional athletes coach" "Thanks for nothing, prick" "You got your money. I am not signing any insurance papers and I am going to call the insurance company and tell them not to pay" "Fuck it, I am leaving" He remained long enough to have his epidural catheter removed with the tip being intact and his IV removed. Pressure dressings were applied at both sites and he was advised to make a follow-up appointment in the pain clinic. He stated that "I am never going to come to [facility] again". He was presented with the AMA form to sign but he refused to sign it and left abruptly. Present were Vernon Magdaleno PA-C, Marti Starr RN, and the floor unit nurse Sandra More RN who witnessed the entire exchange. Objective Vital Signs: Last Vital Signs Documentation Date Time Temp Pulse Resp B/P (MAP) Pulse Ox O2 Delivery O2 Flow Rate FiO2 02/27/17 08:02 36.5 77 16 157/98 (117) 95 Room Air Laboratory Laboratory Findings 02/04/17 09:50 Red Blood Count 5.01, Mean Corpuscular Volume 90.6, Mean Corpuscular Hemoglobin 30.9, Mean Corpuscular Hemoglobin Concent 34.1, Mean Platelet Volume 11.1 H, Neutrophils (%) (Auto) 64.8, Lymphocytes (%) (Auto) 23.8, Monocytes (%) (Auto) 6.1, Eosinophils (%) (Auto) 4.3, Basophils (%) (Auto) 0.8, Neutrophils # (Auto) 6.39, Lymphocytes # (Auto) 2.35, Monocytes # (Auto) 0.60 H, Eosinophils # (Auto ) 0.42, Basophils # (Auto) 0.08 Assessment 1. [] 2. [] 3. [] 4. [] 5. [] Recommendations 1. [] 2. [] 3. [] 4. [] 5. []
--- NOTE | 2017-03-03 14:36 | Discharge Summary ---
Discharge Summary Date of Service Feb 25, 2017. Discharge Summary Admission Date: Feb 25, 2017 at 14:49 Discharge Date: Feb 27, 2017 Discharge Disposition: Home Principal Diagnosis: Lumbar post laminectomy syndrome. Procedures: Placement of epidural catheter under fluoroscopic guidance. Vaccinations: None Consultations: None Pending Studies/Follow-Up: None Medication Reconciliation Continued Medications: Ascorbic Acid (Vitamin C) 500 Mg Tab 100 MG PO QAM Clonazepam (Klonopin) 0.5 Mg Tab 0.5 MG PO BID, TAB Duloxetine Hcl (Cymbalta) 60 Mg Cap 1 CAP PO QAM, CAP Gabapentin (Neurontin) 300 Mg Cap 900 MG PO TID, CAP Ibuprofen (Motrin) 400 Mg Tab 400 MG PO TID, TAB PRN Losartan Potassium (Cozaar) 50 Mg Tab 50 MG PO QAM, TAB Pantoprazole (Protonix) 40 Mg Tab 40 MG PO BID, #30 TAB Tapentadol Hcl (Nucynta) 100 Mg Tab 1 TAB PO QID, TAB Admission Information HPI (per Admitting provider): 41 year old male with history of lumbar postlaminectomy syndrome who has failed multiple modalities as well SCS trial admitted of epidural opioids to determine if he is a candidate for intrathecal pump. Hospital Course 02/25/17: Admitted 02/25/17: Underwent placement of epidural catheter in the OR under fluoroscopy with infusion of preservative free morphine 0.2 mg/hr. 02/26/17-02/27/17: Experienced analgesia without side effects. Epidural dose adjusted to 0.4 mg/hr rate. 02/27/17: Patient signed out AMA when confronted about him being non compliant by leaving the monitored unit to go out to smoke. Epidural catheter was removed. Patient became agitated and angry and left AMA. Total time spent on discharge = 30 min This includes examination of the patient, discharge planning, medication reconciliation, and communication with other providers. Discharge Instructions Patient left before D/C instructions were given to him. Additional Copies To Sandra Valdivia D.O.
== END 2017-02-27 10:41 | disposition left against medical advice (07) ==
LOC: C.ACU 11:18 → C.2T 14:49 → ENRESERV 15:12
PROVIDERS: ADMIT Anesthesiology; ATTEND Anesthesiology
DX: M96.1 Postlaminectomy syndrome, not elsewhere classified (principal); Z79.899 Other long term (current) drug therapy; E66.9 Obesity, unspecified; Z68.35 Body mass index [BMI] 35.0-35.9, adult; Z98.890 Other specified postprocedural states; Z90.89 Acquired absence of other organs

== ENCOUNTER 2019-09-13 13:04 | Observation (INO) ==
--- OUTSIDE RECORDS SUMMARY | 2019-09-13 13:06 | External Medical Summary | Continuity of Care Document ---
:1975 Author Name Teo Nguyen Address Unavailable Unavailable , Care Team Providers Name Role Phone María Avalos PA-C Unavailable [email or web address] Dilan Nguyen Unavailable [email or web address] Quinten CARLSON Unavailable [email or web address] Falcon PA-C Unavailable [email or web address] Epi Lee M.D. Unavailable [email or web address] Fish IRIZARRY Unavailable Unavailable [facility] Unavailable Unavailabl e Chris LEE M.D. Unavailable Unavailable Problems Abdominal pain, LLQ (left lower quadrant) (789.04) (R10.32) Acute bronchitis (466.0) (J20.9) Acute postoperative pain (338.18) (G89.18) Trigger middle finger (727.03) (M65.339) Nicotine dependence (305.1) (F17.200) Thrombophlebitis of leg, superficial (451.0) (I80.00) Incisional hernia (553.21) (K43.2) Diverticulitis of colon (562.11) (K57.32) Disc degeneration, lumbar (722.52) (M51.36) Chronic neck and back pain (723.1) (M54.2) Hypertension (401.9) (I10) Achilles tendinitis (726.71) (M76.60) Achilles tendinitis (726.71) (M76.60) MSSA (methicillin susceptible Staphylococcus aureus) (041.11 ) (A49.01) Muscle weakness of lower extremity (728.87) (M62.81) Foreign body in eye (930.9) (T15.90XA) Chest pain, pleuritic (786.52) (R07.81) Acute conjunctivitis (372.00) (H10.30) Abnormal glucose (790.29) (R73.09) Contusion of foot (924.20) (S90.30XA) Second degree sunburn (692.76) (L55.1) Depression (311) (F32.9) Hand injury (959.4) (S69.90XA) Esophageal reflux (530.81) (K21.9) Limb pain (729.5) (M79.609) Chest pain (786.50) (R07.9) Acute sinusitis (461.9) (J01.90) Rhinitis (472.0) (J31.0) Leg swelling (729.81) (M79.89) Insomnia (780.52) (G47.00) External hemorrhoids (455.3) (K64.4) Lumbar radiculopathy (724.4) (M54.16) Low back pain (724.2) (M54.5) Osteomyelitis of vertebra (730.28) (M46.20) Edema (782.3) (R60.9) Hernia (553.9) (K46.9) Allergies and Adverse Reactions Methadone HCl TABS (Allergy) Other (Allergy) Medications Carisoprodol 350 MG Oral Tablet; TAKE ONE TABLET 2 IVAN ES A DAY ALDO Shipley Start: 27-May-2011 Quantity: 60 Refills: 0 Hydrocortisone 2.5 % Rectal Cream; apply to affected a david bid x 2 weeks LAITH Falcon Start: 28-Jul-2016 Quantity: 1 30 GM Tube Refills: 2 MiraLax Oral Powder; 17 grams by mouth daily prn Refills: 0 Vitamin C 1000 MG Oral Tablet; TAKE 1 TABLET DAILY. Refills: 0 Naproxen 500 MG Oral Tablet; TAKE 1 TABLET EVERY 12 HO URS WITH FOOD. Wendy Lee Start: 12-Sep-2016 Quantity: 20 Refills: 1 CeFAZolin Sodium SOLN; 2g iv q 8hr through 07/23/2015 Refills: 0 Percocet 5-325 MG Oral Tablet; 1 TAB PO BID FOR BREAKTHROUGH PAIN Refills: 0 Morphine Sulfate ER 60 MG Oral Tablet Ex tended Release; Take 1 tablet twice daily ALDO Shipley Start: 20-Sep-2013 Quantity: 60 Refills: 0 Pantoprazole Sodium 40 MG Oral Tablet De layed Release; TAKE ONE TABLET BY MOUTH 2 TIMES A DAY LAITH Avalos Start: 25-Sep-2016 Quantity: 60 Refills: 5 Losartan Potassium 50 MG Oral Tablet; TAKE 1 TABLET EV SANDRA DAY LAITH Avalos Start: 28-Jul-2016 Quantity: 30 Refills: 5 DULoxetine HCl - 60 MG Oral Capsule Danika yed Release Particles; TAKE 1 CAPSULE DAILY. LAITH Avalos Start: 24-Oct-2013 Quantity: 30 Refills: 5 Nicotrol 10 MG Inhalation Inhaler; USE DIRECTED. LAITH Avalos Start: 10-May-2012 Quantity: 1 Refills: 3 Gabapentin 300 MG Oral Capsule; 3 capsules 3 times juan ly LAITH Falcon Start: 27-Aug-2016 Quantity: 270 Refills: 5 Nicotrol 10 MG Inhalation Inhaler; USE DIRECTED. LAITH Hurd Start: 13-Mar-2016 Quantity: 4 168 Inhaler Inhaler Refills: 5 oxyCODONE HCl - 30 MG Oral Tablet; TAKE 1 TABLET EVERY 6 HOURS NEEDED FOR PAIN. ALDO Shipley Start: 20-Sep-2013 Quantity: 120 Refills: 0 Procedures History of Colonoscopy (Fiberoptic) Stat us: Completed History of Colostomy Temporary Status: C ompleted History of Surgery Status: Completed History of Back Surgery Status: Complete d History of Indwelling Catheter PICC Line Status: Completed History of Exploration Of Penetrating Wound Back Status: Completed Immunizations Influenza On: 17-Mar-2003 Influenza On: 29-Jan-2007 Influenza On: 01-Feb-2008 Influenza On: 20-Mar-2009 Influenza On: 21-Jan-2010 9:18 Lot #: [id number], [employer] Influenza On: 03-Jan-2011 13:48 Lot #: [id number], [employer] Tdap (Adacel) On: 27-May-2011 8:36 Lot #: [id number], [employer] Influenza On: Jan-2012 Influenza On: 08-Mar-2013 10:24 Lot #: [id number], [employer] PA[employer] Family History Brother Family history of Cardiomyopathy Status: Active Social History - Smoking Status Smoker Plan of Treatment Planned Observations Planned Goals not documented Results No Known Results Results not documented
[2019-09-13] MEDS ORDERED: SODIUM CHLORIDE 0.9% 1000ML 1,000 ML IV SCH (13:30)
[2019-09-13] MEDS ORDERED: ONDANSETRON INJ 2 MG/ML 2 ML VIAL IV STA (13:36)
[2019-09-13] MEDS ORDERED: PIPERACILLIN/TAZOBACTAM 4.5 GM/120 ML BAG IV ONE (13:36)
[2019-09-13] MEDS ORDERED: PIPERACILL/TAZOBAC CONSULT ACTIVE PRN (13:36)
[2019-09-13] MEDS ORDERED: MoRPHine SULFATE 4 MG/ML 1 ML CARP\\VIAL IV STA ×2 (13:36→16:23)
--- NOTE | 2019-09-13 13:53 | Emergency Department Note ---
History of Present Illness General Chief complaint: Infection, Wound Stated complaint: LUMP CLOSE TO BUTTOCKS BETWEEN LEGS Time Seen by Provider: 09/13/19 13:18 History of Present Illness Maximum Pain Intensity: 8 This is a 44-year-old male that presents to the emergency department via private vehicle with complaints of "lump close to buttocks between legs". The patient states that he had what he believes was a boil near the rectal region for some time now. He states that over the past few days the swelling and pain in the perineal/rectal region has greatly increased to the point where he notes he cannot sit secondary to pain. He rates her overall discomfort currently at this time as quite severe with sitting. He denies any fevers or chills. No history of ulcerative colitis or Crohn's. He has never had this before. Home Medications Home Medications Medication Instructions Recorded Confirmed Type duloxetine 60 mg PO QAM 09/13/19 09/13/19 History gabapentin 900 mg PO TID 09/13/19 09/13/19 History losartan 100 mg PO QAM 09/13/19 09/13/19 History methocarbamol 750 mg PO QID 09/13/19 09/13/19 History pantoprazole 40 mg PO BID 09/13/19 09/13/19 History Allergies Allergy/AdvReac Type Severity Reaction Status Date / Time methadone AdvReac Severe SWEATS, Verified 09/13/19 15:58 SHAKES, NAUSEA, TREMMORS Past Med/Surg History Medical History Hypertension (Chronic) Lumbar radiculopathy, chronic (Acute 07/07/13) Surgical History Hx of spinal surgery Social History Feels Safe at Home: Yes Smoking Status: Current every day smoker Review of Systems A total of 10 systems reviewed and were otherwise negative Physical Exam Vital Signs Vital Signs - 24 hr 09/13/19 13:15 09/13/19 15:05 09/13/19 17:00 Temperature 37.0 C Temperature Source Oral Pulse Rate 105 H Pulse Rate [Apical] 78 72 Respiratory Rate 16 18 18 Blood Pressure 144/89 H Blood Pressure [Left Arm] 128/77 121/84 Blood Pressure Mean 107 Blood Pressure Mean [Left Arm] 94 96 Pulse Oximetry 97 98 97 Oxygen Delivery Method Room Air Room Air Room Air Sepsis Recent Fever Within 48 Hours No Sepsis New/Unexplained Change in Mental Status No Sepsis Action Taken by Nursing No Action Required VITAL SIGNS - Vital signs and nursing notes were reviewed. Stable and afebrile. GENERAL -44-year-old male appearing his stated age who is in no acute distress. Communicates well with provider and answers questions appropriately. SKIN -the patient's perineal region is slightly erythematous and slightly edematous with a mildly fluctuant spherical palpable region deep to the surface that is tender on examination. No drainage. HEAD - NC/AT. LUNGS - Chest wall symmetric without accessory muscle use, intercostals retractions, or central cyanosis. Normal vesicular breath sounds CTA B/L. No wheezes, rales, or rhonchi appreciated. CARDIAC - RRR with S1/S2. No murmur, rubs, or gallops appreciated. ABDOMEN - Abdominal contour normal without pulsations or visible masses. BS normoactive all four quadrants. No tenderness, palpable masses, hepatosplenomegaly, or ascites noted. RECTAL: Skin as above, no drainage or evidence of scrotal involvement. There is a mildly fluctuant palpable spherical shaped abnormality deep to the skin surface in the perineal region. Course Administered Medications Discontinued Medications Sodium Chloride (Nss 1000ml) 1,000 mls @ 999 mls/hr IV .Q1H1M RAHEEM Stop: 09/13/19 14:30 Last Infusion: 09/13/19 14:48 Dose: 0 mls/hr Documented by: [id number] Admin: 09/13/19 13:45 Dose: 999 mls/hr Documented by: [id number] Piperacillin Sod/Tazobactam Sod (Zosyn) 4.5 gm in 120 mls @ 240 mls/hr IV NOW ONE Stop: 09/13/19 14:05 Last Infusion: 09/13/19 14:15 Dose: 0 mls/hr Documented by: [id number] Admin: 09/13/19 13:44 Dose: 240 mls/hr Documented by: [id number] Morphine Sulfate (Morphine Sulfate) 4 mg IV NOW STA Stop: 09/13/19 13:37 Last Admin: 09/13/19 13:44 Dose: 4 mg Documented by: [id number] Morphine Sulfate (Morphine Sulfate) 4 mg IV NOW STA Stop: 09/13/19 16:24 Last Admin: 09/13/19 16:26 Dose: 4 mg Documented by: [id number] Ondansetron HCl (Zofran) 4 mg IV NOW STA Stop: 09/13/19 13:37 Last Admin: 09/13/19 13:44 Dose: 4 mg Documented by: [id number] Medical Decision Making Laboratory Data Result diagrams: 09/13/19 13:41 09/13/19 13:41 Lab Results 09/13/19 09/13/19 Range/Units 13:41 13:41 WBC 12.63 H (4.8-10.8) K/uL RBC 4.89 (4.7-6.1) M/uL Hgb 15.9 (14.0-18.0) g/dL Hct 45.4 (42-52) % MCV 92.8 (80-100) fL MCH 32.5 (25-34) pg MCHC 35.0 (32-36) g/dL RDW Std Deviation 48.0 H (36.4-46.3) fL RDW Coeff of Alberto 14.0 (11.5-14.5) % Plt Count 243 (130-400) K/uL MPV 10.2 (7.4-10.4) fL Immature Gran % (Auto) 0.2 % Neut % (Auto) 68.1 % Lymph % (Auto) 21.1 % [place] % (Auto) 7.6 % Eos % (Auto) 2.1 % Baso % (Auto) 0.9 % Immature Gran # (Auto) 0.02 (0.00-0.02) K/uL Neut # (Auto) 8.61 H (1.4-6.5) K/uL Lymph # (Auto) 2.67 (1.2-3.4) K/uL [place] # (Auto) 0.96 H (0.11-0.59) K/uL Eos # (Auto) 0.26 (0-0.5) K/uL Baso # (Auto) 0.11 (0-0.2) K/uL Sodium 136 (136-145) mmol/L Potassium 3.9 (3.5-5.1) mmol/L Chloride 104 (98-107) mmol/L Carbon Dioxide 27 (21-32) mmol/L Anion Gap 5.0 (3-11) BUN 11 (7-18) mg/dl Creatinine 0.84 (0.6-1.4) mg/dl Est Cr Clr Drug Dosing 135.4 ml/min Est GFR ( Amer) 125.2 Est GFR (Non-Af Amer) 108.0 BUN/Creatinine Ratio 13.3 (10-20) Glucose 78 (70-99) mg/dl Calcium 8.9 (8.5-10.1) mg/dl Total Bilirubin 0.6 (0.2-1) mg/dl AST 15 (15-37) U/L ALT 32 (12-78) U/L Alkaline Phosphatase 176 H (45-117) U/L Total Protein 7.6 (6.4-8.2) gm/dl Albumin 3.6 (3.4-5.0) gm/dl Globulin 4.0 (2.5-4.0) gm/dl Albumin/Globulin Ratio 0.9 (0.9-2) Imaging Data Radiologist's Impression: CT abd pelvis IV con only CT DOSE: 1024.93 mGy.cm HISTORY: Pain Perineal pain/fluctuance TECHNIQUE: Multiaxial CT images of the abdomen and pelvis were performed following the use of intravenous contrast. A dose lowering technique was utilized adhering to the principles of ALARA. COMPARISON STUDY: 12/18/2011 FINDINGS: The lung bases are considered clear. The liver spleen and pancreas are unremarkable. The kidneys enhance uniformly. No evidence for hydronephrosis. Stable postoperative changes of the lumbar or sacral spine. Nonobstructive bowel pattern. Bladder is midline. Several small reactive nodes in the inguinal region measuring up to 1 cm. Infiltrative changes subcutaneous fat of the right perineum and right perianal region. 1.5 cm hypodense collection within the subcutaneous fat of the right anterior perineum. This is anterior to the anal verge. IMPRESSION: 1. Nonspecific cellulitis involving the right perineum 2. 1.5 cm abscess anterior to the anal verge involving the right central subcutaneous fat of the perineum. 3. Mild reactive inguinal adenopathy. 4. Study is otherwise negative. ACT 112: Negative or not required by law. The above report was generated using voice recognition software. It may contain grammatical, syntax or spelling errors. Electronically signed by: Caleb Gordon M.D. 09/13/2019 3:22 PM MDM Narrative Patient was seen and evaluated as above in room B9. Review was performed of nursing notes and vital signs. After obtaining a thorough history and physical examination the above work up was performed. He presents to us today with pain in the perineal region and there is concern for abscess on examination. IV access was established. Labs were drawn. He was medicated with fluids, Zofran and morphine. He did require a second round of morphine. I empirically covered him with Zosyn on arrival given the likely diagnosis. There is leukocytosis of 12.63 without anemia. No emergent metabolic disturbance. CT scan does reveal a nonspecific cellulitis involving the right perineum and 1.5 cm abscess anterior to the anal verge involving the right central subcutaneous fat of the perineum. Clinically this correlates. His abdominal exam is benign. I discussed the case with general surgery who came to evaluate the patient. He will be admitted for further evaluation and management. Please refer to further documentation re garding his stay. Case was discussed with the attending physician. In the evaluation and treatment of this patient the following differential diagnoses were entertained: Perineal cellulitis, perianal abscess, perineal abscess, malignancy, fistula, among others. Impression & Plan Perineal abscess Discharge Plan Visit Data Chief Complaint: Infection, Wound Stated Complaint: LUMP CLOSE TO BUTTOCKS BETWEEN LEGS ED Provider: Eric Camarena ED Midlevel Provider: Kaden Coats Discharge Problem: Perineal abscess Patient Disposition: Admitted As Inpatient Condition: Good Forms Stand Alone Forms: My [facility] [place] [employer] Prescriptions Prescriptions: No Action methocarbamol 750 mg tablet 750 mg PO QID RF: 0 pantoprazole 40 mg tablet,delayed release (DR/EC) 40 mg PO BID RF: 0 gabapentin 300 mg capsule 900 mg PO TID RF: 0 losartan 100 mg tablet 100 mg PO QAM RF: 0 duloxetine 60 mg capsule,delayed release(DR/EC) 60 mg PO QAM RF: 0 Referrals Referrals: Sandra Valdivia DO [Primary Care Provider] -
[2019-09-13 13:57] LABS: Basophils # (auto) 0.11 K/uL (0-0.2); Basophils % (auto) 0.9 %; Eosinophils # (auto) 0.26 K/uL (0-0.5); Eosinophils % (auto) 2.1 %; Hematocrit (blood only) 45.4 % (42-52); Hemoglobin 15.9 g/dL (14.0-18.0); Immature Granulocytes # (auto) 0.02 K/uL (0.00-0.02); Immature Granulocytes % (auto) 0.2 %; Lymphocytes # (auto) 2.67 K/uL (1.2-3.4); Lymphocytes % (auto) 21.1 %; Mean Corpuscular Hemoglobin 32.5 pg (25-34); Mean Corpuscular Volume 92.8 fL (80-100); Mean Platelet Volume 10.2 fL (7.4-10.4); Monocytes # (auto) 0.96 K/uL (0.11-0.59); Monocytes % (auto) 7.6 %; Neutrophils # (auto) 8.61 K/uL (1.4-6.5); Neutrophils % (auto) 68.1 %; Platelet Count 243 K/uL (130-400); Red Blood Count 4.89 M/uL (4.7-6.1); White Blood Count 12.63 K/uL (4.8-10.8)
[2019-09-13 14:12] LABS: Albumin Level 3.6 gm/dl (3.4-5.0); BUN Creatinine Ratio 13.3 (10-20); Calcium 8.9 mg/dl (8.5-10.1); Creatinine Clr Calc Pharmacy 135.4 ml/min; Est GFR (African American) 125.2; Potassium 3.9 mmol/L (3.5-5.1)
[2019-09-13 14:15] LABS: Albumin Globulin Ratio 0.9 (0.9-2); Bilirubin,Total 0.6 mg/dl (0.2-1); Total Protein 7.6 gm/dl (6.4-8.2)
--- NOTE | 2019-09-13 15:24 | CT Scan Report ---
CT abd pelvis IV con only CT DOSE: 1024.93 mGy.cm HISTORY: Pain Perineal pain/fluctuance TECHNIQUE: Multiaxial CT images of the abdomen and pelvis were performed following the use of intrave nous contrast. A dose lowering technique was utilized adhering to the principles of ALARA. COMPARISON STUDY: 12/18/2011 FINDINGS: The lung bases are considered clear. The liver spleen and pancreas are unremarkable. The kidneys enhance uniformly. No evidence for hydronephrosis. Stable postoperative changes of the lumbar or sacral spine. Nonobstructive bowel pattern. Bladder is midline. Several small reactive nodes in the inguinal region measuring up to 1 cm. Infiltrative changes subcutaneous fat of the right perineum and right perianal region. 1.5 cm hypoden se collection within the subcutaneous fat of the right anterior perineum. This is anterior to the dylan verge. IMPRESSION: 1. Nonspecific cellulitis involving the right perineum 2. 1.5 cm abscess anterior to the anal verge involving the right central subcutaneous fat of the iraida neum. 3. Mild reactive inguinal adenopathy. 4. Study is otherwise negative. ACT 112: Negative or not required by law. The above report was generated using voice recognition software. It may contain grammatical, syntax or spelling errors. Electronically signed by: Caleb Gordon M.D. 09/13/2019 3:22 PM
--- NOTE | 2019-09-13 15:34 | Emergency Department Note ---
ED Visit Note I did evaluate and examine this patient myself. I did guide management for the patient. I agree with the PA's assessment as discussed. Please see the PAs dictation for further details. I did independently review the CT scan of the pelvis and blood work. The patient has a white count of 12. CT scan shows cellulitis of the perineum and a 1.5 cm abscess to the subcu fat in the perineum. The patient was treated with Zosyn IV. Surgery was consulted. .
--- NOTE | 2019-09-13 17:06 | History & Physical Report ---
Date of Service September 13, 2019 Assessment & Plan (1) Perineal abscess: 1.5 cm, deep abscess will admit for IV antibiotics, discuss with radiology for possible guided aspiration keep npo after midnight for possible procedure I discussed the CT scan findings with the patient in detail since the area is approximately 1.5 cm reading is an abscess the patient had more extensive induration and this starting in the perianal area going up to the base of the scrotum and to find the abscess may be difficult secondly the patient has some inflammatory changes in the right perianal area although does not have any rah tenderness or cellulitis I discussed with the patient the best avenue tried antibiotic we will reevaluate in the morning and see if there area can be better localized if not we may need to have it drained by ultrasound The area of induration is more expensive than the 1.5 cm abscess and I am concerned there may be something else is going on in the area He denies any trauma to the area as stated has had some urinary symptoms but nothing unusual History of Present Illness Primary Care Provider: Sandra Valdivia DO 44 y/o male with significant perineal pain and lump developing over the past 24 hours. Has been treated off and on over the past year with abx from PCP for superficial abscess or boils of perianal area. Allergies Allergy/AdvReac Type Severity Reaction Status Date / Time methadone AdvReac Severe SWEATS, Verified 09/13/19 15:58 SHAKES, NAUSEA, TREMMORS Home Medications Home Medications Medication Instructions Recorded Confirmed Type duloxetine 60 mg PO QAM 09/13/19 09/13/19 History gabapentin 900 mg PO TID 09/13/19 09/13/19 History losartan 100 mg PO QAM 09/13/19 09/13/19 History methocarbamol 750 mg PO QID 09/13/19 09/13/19 History pantoprazole 40 mg PO BID 09/13/19 09/13/19 History Past Med/Surg History Medical History Hypertension (Chronic) Lumbar radiculopathy, chronic (Acute 07/07/13) Surgical History Hx of spinal surgery Social History (Reviewed 09/13/19 @ 17:56 by JENNIFER Rowland Preferred Language: Macanese Communication Ability: Effective 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: No Beliefs That Will Affect Care: None Current Living Situation: Spouse and Family Other Information That Helps Us Care for You: No Feels Safe at Home: Yes Safety Concerns: Feels Safe At This Time Smoking Status: Current every day smoker Tobacco Type: cigarettes ; Cigarettes Per Day: 30 ; Do You Dip or Chew Tobacco: No ; Second Hand Exposure: Yes ; Hx Alcohol Use: No Hx Substance Use: Yes substance use type: marijuana and prescription drug Substance Use Type Other:: reports medical marijuana card Last Used Substance: Hours (ago) Review of Systems Constitutional: no fever and no chills Gastrointestinal: no change in bowel habits Physical Exam Constitutional: WD/WN, vitals as above Respiratory: normal respiratory effort Cardiovascular: Rate/Rhythm: regular rate Gastrointestinal (Abdomen): 3cm induration/mass like area at base of scrotum, minimal erythema Results & Data Results & Data ([facility]) Vital Signs (Past 12 Hours) Vital Signs Temp Pulse Pulse Resp BP BP Pulse Ox 09/13/19 15:05 78 18 128/77 98 09/13/19 13:15 37.0 C 105 H 16 144/89 H 97 PG Care Time/CCT Total # of Minutes Spent Total Time Spent with Patient: Total time spent is greater than 50% in coordination of care (as documented) at patient's floor/unit and/or counseling patient: Coding Level of Care Code 67716 Initial Inpt Care Lvl 1 Diagnoses Perineal abscess L02.215
[2019-09-13] MEDS ORDERED: HYDROmorphone INJ 0.5 MG/0.5 ML SYR IV PRN (18:26)
[2019-09-13] MEDS ORDERED: ONDANSETRON INJ 2 MG/ML 2 ML VIAL IV PRN (18:26)
[2019-09-13] MEDS: OXYCODONE/ACETAMINOPHEN 10-325 TAB PO PRN ×2 (19:14→23:31)
[2019-09-13] MEDS: KETOROLAC 30 MG/ML VIAL IV PRN (19:14)
[2019-09-13] MEDS ORDERED: CIPROFLOXACIN / D5W 400 MG/200 ML BAG IV SCH (20:00)
[2019-09-13] MEDS: METHOCARBAMOL 750 MG TABLET PO SCH ×2 (20:09→22:05)
[2019-09-13] MEDS: metroNIDAZOLE 500 MG/100 ML BAG IV SCH (20:10)
[2019-09-13] MEDS ORDERED: NICOTINE 14 MG/24 HR PATCH TD SCH (20:30)
[2019-09-13] MEDS: HYDROmorphone INJ 1 MG/ML SYRINGE IV PRN (21:59)
[2019-09-13] MEDS: GABAPENTIN 300 MG CAP PO SCH (22:05)
[2019-09-13] MEDS: PANTOprazole 40 MG TAB PO SCH (22:06)
[2019-09-13 23:41] LABS: Appearance Urine Clear (Clear); Bilirubin Urine Negative (Negative); Blood Urine Negative (Negative); Color Urine Yellow; Glucose Urine UA Negative (Negative); Ketones Urine Negative (Negative); Leukocyte Esterase Urine Negative (Negative); Nitrite Urine Negative (Negative); Protein Urine Negative (Negative); Specific Gravity Urine > 1.045 (1.000-1.030); Urobilinogen Urine Negative (Negative)
[2019-09-14] MEDS: HYDROmorphone INJ 1 MG/ML SYRINGE IV PRN ×3 (01:50→08:11)
[2019-09-14] MEDS: metroNIDAZOLE 500 MG/100 ML BAG IV SCH (01:52)
[2019-09-14] MEDS: KETOROLAC 30 MG/ML VIAL IV PRN (02:43)
[2019-09-14] MEDS: OXYCODONE/ACETAMINOPHEN 10-325 TAB PO PRN (04:43)
[2019-09-14 07:17] LABS: Basophils # (auto) 0.08 K/uL (0-0.2); Basophils % (auto) 0.7 %; Eosinophils # (auto) 0.39 K/uL (0-0.5); Eosinophils % (auto) 3.5 %; Hematocrit (blood only) 40.9 % (42-52); Hemoglobin 14.2 g/dL (14.0-18.0); Immature Granulocytes # (auto) 0.02 K/uL (0.00-0.02); Immature Granulocytes % (auto) 0.2 %; Lymphocytes # (auto) 2.26 K/uL (1.2-3.4); Lymphocytes % (auto) 20.4 %; Mean Corpuscular Hemoglobin 32.4 pg (25-34); Mean Corpuscular Hgb Conc 34.7 g/dL (32-36); Mean Corpuscular Volume 93.4 fL (80-100); Mean Platelet Volume 10.5 fL (7.4-10.4); Monocytes # (auto) 0.99 K/uL (0.11-0.59); Monocytes % (auto) 8.9 %; Neutrophils # (auto) 7.34 K/uL (1.4-6.5); Neutrophils % (auto) 66.3 %; Platelet Count 216 K/uL (130-400); RDW Coefficient of Variation 13.7 % (11.5-14.5); RDW Standard Deviation 46.9 fL (36.4-46.3); Red Blood Count 4.38 M/uL (4.7-6.1); White Blood Count 11.08 K/uL (4.8-10.8)
--- NOTE | 2019-09-14 08:04 | Surgery Progress Note ---
Date of Service September 14, 2019 Assessment & Plan (1) Perineal abscess: discussed with radiology, not amenable to IR drainage remains stable, will d/c on po abx and f/u in clinic Subjective feels about the same Physical Exam Gastrointestinal (Abdomen): similar to yesterday perianal tenderness, induration, no erythema Results & Data Vital Signs (Past 12 Hours) Vital Signs Temp Pulse Resp BP Pulse Ox 09/13/19 22:50 36.7 C 59 L 16 143/100 H 95 PG Care Time/CCT Total # of Minutes Spent Total Time Spent with Patient: Total time spent is greater than 50% in coordination of care (as documented) at patient's floor/unit and/or counseling patient: Coding Level of Care Code 98308 Subseq Hosp Care Lvl 1 Diagnoses Perineal abscess L02.215
[2019-09-14] MEDS: GABAPENTIN 300 MG CAP PO SCH (08:12)
[2019-09-14] MEDS: PANTOprazole 40 MG TAB PO SCH (08:12)
[2019-09-14] MEDS: METHOCARBAMOL 750 MG TABLET PO SCH (08:12)
[2019-09-14] MEDS ORDERED: LOSARTAN POTASSIUM 50 MG TAB PO SCH (09:00)
[2019-09-14] MEDS ORDERED: DULOXETINE HCL 60 MG CAP PO SCH (09:00)
--- NOTE | 2019-09-14 09:35 | Discharge Summary ---
Date of Service September 14, 2019 Admission HPI Per Admitting Provider 44 y/o male with significant perineal pain and lump developing over the past 24 hours. Has been treated off and on over the past year with abx from PCP for superficial abscess or boils of perianal area. Principal Diagnosis Perineal abscess Discharge Exam Gastrointestinal (Abdomen) 3 cm indurated area at base of scrotum Discharge Data Allergies Allergy/AdvReac Type Severity Reaction Status Date / Time methadone AdvReac Severe SWEATS, Verified 09/13/19 15:58 SHAKES, NAUSEA, TREMMORS Ordered Studies 09/13/19 13:30 CT abd pelvis IV con only Stat Hospital Course (1) Perineal abscess: 44 y/o male presented to ER with perineal pain, swelling. CT showed a 1.5 cm fluid collection consistent with small abscess. This was difficult to localize for drainage given small size and location. It was also not felt to be amenable to aspiration by IR. He was admitted overnight for observation and IV antibiotics. In the morning he was stable for discharge home on oral antibiotics. Total Time Total Time Spent Total Time Spent (In Minutes): 10 Discharge Plan Discharge Items Patient Disposition: Home - Self-Care Reason For Visit: PERINEAL ABSCESS Discharge Diagnosis: abscess Condition on Discharge: Good Activity: Resume your previous activity Bathing: No limitations Non-emergency contact: Surgeon Call non-emergency contact if: you have any medication questions, you have a fev er, your temperature is above 101.5 and your wound has increased redness Follow-up/Referrals: Gunner Guerra MD [Surgeon] - (Call to make an appt for next week) Sandra Valdivia DO [Primary Care Provider] - Diet: Regular Addtl Attending Provider Instructions: Pending Studies at Discharge: No Stand-Alone Forms: My [employer], Smoking Cessation Medications and DC Order Prescriptions: New ciprofloxacin HCl [Cipro] 500 mg tablet 500 mg PO BID Qty: 14 RF: 0 metronidazole [Flagyl] 500 mg tablet 500 mg PO TID Qty: 21 RF: 0 Continued methocarbamol 750 mg tablet 750 mg PO QID RF: 0 pantoprazole 40 mg tablet,delayed release (DR/EC) 40 mg PO BID RF: 0 gabapentin 300 mg capsule 900 mg PO TID RF: 0 losartan 100 mg tablet 100 mg PO QAM RF: 0 duloxetine 60 mg capsule,delayed release(DR/EC) 60 mg PO QAM RF: 0 Discharge Orders: Discharge Order (Routine); Ordered 09/14/19 Ordered By: Heber Hunter/Other Patient Handouts: Hypertension Control, Perianal Abscess Admission Data Admit Date/Time: 09/13/19 17:11 Attending Provider: Gunner Guerra Admit Provider: Gunner Guerra Primary Care Provider: Sandra Valdivia Other Interventions: Discharge Summary Assessment (RN) Last Done: 09/14/19 08:28 DC Date/Time DO NOT enter until pt leaves facility: 09/14/19 08:38 Coding Level of Care Code D/C Day Management <30 mins Diagnoses Perineal abscess L02.215
== END 2019-09-14 08:38 | disposition home or self-care (01) ==
LOC: ED 13:04 → 3N 13:04